=== PATIENT | female | born 1965 | race Caucasian/White ===

== ENCOUNTER 2020-04-12 16:44 | Outpatient (CLI) | payer OTHER, SELFPAY ==
--- NOTE | ~2020-04-12 | MM_ITS ---
EXAMINATION: MM screening [facility] w naheed HISTORY: Screening TECHNIQUE: Craniocaudal and mediolateral oblique 3-D tomosynthesis images were obtained and synthetic 2-D images were generated. CAD analysis was submitted and interpreted. COMPARISON: Comparison to multiple prior studies sequentially, with oldest reviewed study dated 07/2016. BREAST PARENCHYMAL COMPOSITION: There are scattered areas of fibroglandular density. FINDINGS: There is no evidence of suspicious mass, calcification, or architectural distortion to sugg est malignancy in either breast. There has been no suspicious interval change. IMPRESSION: 1. No mammographic evidence of malignancy. 2. Recommend routine screening mammography in one year. BI-RADS Category 1: Negative. Reviewed, dictated and finalized at location A. INSTRUCTOR
== END 2020-04-12 16:45 | disposition home or self-care (01) ==
DX: Z12.31 Encounter for screening mammogram for malignant neoplasm of breast (principal)
CPT/HCPCS: 77063; 77067

== ENCOUNTER 2021-06-29 17:02 | Outpatient (CLI) | payer OTHER, SELFPAY ==
--- NOTE | ~2021-06-29 | MM_ITS ---
EXAMINATION: MM screening [facility] BI w naheed HISTORY: Screening mammogram TECHNIQUE: Craniocaudal and mediolateral oblique 3-D tomosynthesis images were obtained and synthetic 2-D images were generated. CAD analysis was submitted and interpreted. COMPARISON: 04/12/2020, 03/17/2019 BREAST PARENCHYMAL COMPOSITION: There are scattered areas of fibroglandular density. FINDINGS: There is no suspicious mass, calcification, or architectural distortion to suggest malignan cy in either breast. There has been no suspicious interval change. IMPRESSION: 1. No mammographic evidence of malignancy. 2. Recommend routine screening mammography in one year. BI-RADS Category 1: Negative Reviewed, dictated and finalized at location A.
== END 2021-06-29 17:03 | disposition home or self-care (01) ==
LOC: ANHIMG 17:06
DX: Z12.31 Encounter for screening mammogram for malignant neoplasm of breast (principal)
CPT/HCPCS: 77063; 77067

== ENCOUNTER 2022-08-29 16:38 | Outpatient (CLI) | payer OTHER, SELFPAY ==
--- NOTE | ~2022-08-29 | MM_ITS ---
EXAMINATION: MM screening [facility] BI w naheed HISTORY: Screening mammogram TECHNIQUE: Craniocaudal and mediolateral oblique 3-D tomosynthesis images were obtained and synthetic 2-D images were generated. CAD analysis was submitted and interpreted. COMPARISON: 06/29/2021, 04/12/2020, 03/17/2019 BREAST PARENCHYMAL COMPOSITION: There are scattered areas of fibroglandular density. FINDINGS: No suspicious mass, calcification, or architectural distortion are identified in either senthil ast to suggest malignancy. There has been no suspicious interval change. IMPRESSION: 1. No mammographic evidence of malignancy. 2. Recommend routine screening mammography in one year. BI-RADS Category 1: Negative Reviewed, dictated and finalized at location A.
== END 2022-08-29 16:39 | disposition home or self-care (01) ==
DX: Z12.31 Encounter for screening mammogram for malignant neoplasm of breast (principal)
CPT/HCPCS: 77063; 77067

== ENCOUNTER 2023-11-14 16:33 | Outpatient (CLI) | payer OTHER, SELFPAY ==
--- NOTE | ~2023-11-14 | MM_ITS ---
EXAMINATION: MM screening [facility] BI w naheed HISTORY: Screening mammogram TECHNIQUE: Craniocaudal and mediolateral oblique 3-D tomosynthesis images were obtained and synthetic 2-D images were generated. CAD analysis was submitted and interpreted. COMPARISON: 08/29/2022, 06/29/2021, 04/12/2020 BREAST PARENCHYMAL COMPOSITION:Not Dense. There are scattered areas of fibroglandular density. FINDINGS: No suspicious mass, calcification, or architectural distortion are identified in either senthil ast to suggest malignancy. There has been no suspicious interval change. IMPRESSION: No mammographic evidence of malignancy. Recommend routine screening mammography in one year. BI-RADS Category 1: Negative Reviewed, dictated and finalized at location .
== END 2023-11-14 16:34 | disposition home or self-care (01) ==
LOC: ANHIMG 16:36
DX: Z12.31 Encounter for screening mammogram for malignant neoplasm of breast (principal)
CPT/HCPCS: 77063; 77067

== ENCOUNTER 2024-12-15 16:27 | Outpatient (CLI) | payer OTHER, SELFPAY ==
--- NOTE | ~2024-12-15 | MM_ITS ---
EXAMINATION: MM screening [facility] BI w naheed HISTORY: Screening TECHNIQUE: Craniocaudal and mediolateral oblique 3-D tomosynthesis images were obtained and synthetic 2-D images were generated. CAD analysis was submitted and interpreted. COMPARISON: Mammograms from 11/14/2023 and 08/29/2022 BREAST PARENCHYMAL COMPOSITION: There are scattered areas of fibroglandular density. FINDINGS: There is no evidence of suspicious mass, calcification, or architectural distortion in either breast to suggest malignancy. There has been no significant interval change. IMPRESSION: 1. No mammographic evidence of malignancy. Recommend routine screening mammography in one year. BI-RADS Category 1: Negative Reviewed, dictated and finalized at location Q. IMPRESSION: 1. No mammographic evidence of malignancy. Recommend routine screening mammogra phy in one year. BI-RADS Category 1: Negative
--- OUTSIDE RECORDS SUMMARY | 2024-12-15 16:30 | XMS_ITS | Encounter Summary ---
Author Organization [facility] Address [address] [place] [address] Care Team Providers Care County Historian Name Role Phone Gen Hobbs MD Primary Care Provider [phone] Encounter Details Date Type Department Care Team (Late st Contact Info) Description 08/01/2007 Orders Only [facility] Internal Medicine Medical [place] [facility] [address] [address] Des Finley MD [address] [facility] 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 ORDERING PHYSICIAN: KALEN FINLEY MD OFFICE SUBASSEMBLY ASSEMBLER & PHONE: Kiara Dickey ORDER PRINTED BY: AUG 04, 2007 Abelino Hurtado L 11:31 a FOR SCHEDULING USE ONLY: FIRST ATTEMPT Date:AUG 04, 2007 Abelino Hurtado L 12:29 p Left message on Recorder.@home and work AUG 04, 2007 Hue Carter M 03:45 p TEST SCHEDULE [facility]. APPOINTMENT DATE : 08/19/2007 The appointment was scheduled by Hue Carter M at [phone] AUG 04, 2007 Hue Carter M 03:45 p Pre-authorization number: [facility]- ([facility]) NN PER VIKA C @ [employer] Spoke with patient. * Kalen Finley MD - 09/19/2007 10:45 AM CDT BLOOD PRESSURE: 124/82 Left Arm Sitting TEMPERATURE: 98??f Oral PULSE: 64 Right Radial, Regular RESPIRATIONS: 16 WEIGHT: 185lbs NURSE NAME: LeachAle I ALLERGIES: No known drug allergies. TOBACCO USE Patient does not currently use tobacco. MEDICATIONS: Medication list current. CHIEF COMPLAINT Seen for a preventive examination. Patient here for follow up hypertension. Patientcomplains of neck pain. Complains of left arm pain. HISTORY: 42-year-old white female comes to the office for yearly preventive examination. She has a pre-existing history of hypertension but that has been fairly well controlled with a combination of amlodipine and enalapril. She denies any peripheral edema nor has she had any problems with cough.. CURRENT PROBLEM LIST: 311 DEPRESSION 401.1 HYPERTENSION ESSENTIAL BENIGN 692.6 CONTACT DERMATITIS AND OTHER ECZEMA CURRENT MEDICATION LIST: AMLODIPINE BESYLATE ORAL TABLET 5 MG, 1 Every Morning ENALAPRIL MALEATE ORAL TABLET 20 MG, 1 Every Morning CURRENT ALLERGY LIST: NKDA ROS: GENERAL: Normal activity and energy level, no change in appetite. No major weight gain or loss. No malaise, chills, fever, diaphoresis.. ENT: No hearing loss, epistaxis, hoarseness or dysphagia. No sinus congestion.. ENDOCRINE: No heat or cold intolerance, no excessive thirst.. CARDIAC: No chest pain, palpitations, orthopnea, dyspnea on exertion, or paroxysmal nocturnal dyspnea.. RESPIRATORY: No dyspnea, cough, hemoptysis or wheezing.. : No frequency, urgency, hematuria or dysuria.. GI: No abdominal pain, nausea, vomiting, diarrhea, constipation, melena, or hematochezia.. NEUROLOGIC: No weakness, dizziness, loss of consciousness, transient ischemic symptoms, or seizures. MUSCULOSKELETAL: . long-standing history of intermittent episodes of chest pain with radiation intothe left shoulder. More recently, she had had radiation of the pain into the left upper extremity. She denies any left upper extremity weakness or paresthesias. Ibuprofen and Aleve have been of no help. When she had only the neck pain, the patient was seen by a chiropractor who performed massage, electrolysis and manipulation. Her symptoms got better, however she began to develop sporadic left arm symptoms they were occurring randomly. PSYCHIATRIC: . Haven continues to struggle with the loss of both of her parents 3 years ago, within4 months of one another. She has noted anhedonia for greater than two consecutive years. She has become more reclusive. Appetite has not been affected and the patient has been functional, not missingany work. She denies low self-esteem, hopelessness or helplessness. She does not derive any enjoyment out of life. She has never had any thoughts of self-harm. FAMILY HISTORY: denies interval family history SOCIAL HISTORY: TOBACCO USE: Has no significant smoking history. ALCOHOL: Drinks a minimal amount of alcohol. EXERCISES: The patient exercises three times per week. The exercise is predominantly walking. ILLICIT DRUG USE: Denies illicit drug use. PHYSICAL EXAMINATION: CONSTITUTIONAL: GENERAL APPEARANCE: Healthy appearing patient in no distress. EYES: PERRLA NECK/THYROID: Trachea midline. No thyroid enlargement, tenderness, or mass. No supraclavicular or cervical adenopathy., and no cervical bruits RESPIRATORY: Clear to auscultation and percussion. Normal respiratory effort. CARDIOVASCULAR: CARDIAC: Regular rhythm. No murmurs, rubs, or gallops. ARTERIAL: No aortic bruits. EDEMA/VARICOSITIES OF EXTREMITIES: No edema or varicosities. GASTROINTESTINAL: ABDOMEN: Soft, non-tender, without masses. Bowel sounds active. LIVER/SPLEEN/KIDNEY: No hepatosplenomegaly, tenderness or nodularity. Kidneys not palpable. MUSCULOSKELETAL EXAM: HEAD AND NECK: No swelling, no tenderness, MOVEMENT MILDLY RESTRICTED IN ALL DIRECTIONS.. There is tenderness to palpation of the right trapezius muscle. EXTREMITIES: LEFT UPPER: Normal deltoid strength, normal biceps strength, normal triceps strength. 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 DEEP TENDON REFLEXES: 2+/4+ patellar reflexes bilaterally, 2+/4+ Achilles' reflexes bilaterally, 2+/4+ biceps reflexes bilaterally, ABSENT LEFT TRICEPS REFLEX, 2+/4+ right triceps reflex, 2+/4+ brachioradialis reflexes bilaterally. PSYCHIATRIC: Alert and oriented x 3. Affect is blunted and mood is depressed. The patient cries frequently during her visit. There is no psychomotor retardation. No suicidal ideation is detected. ASSESSMENT/PLAN: 401.1-HYPERTENSION ESSENTIAL BENIGN ASSESSMENT: The blood pressure remains satisfactory. RECOMMENDATIONS: Continue present regimen. Check renal function V70.0-ROUTINE GENERAL MEDICAL EXAMINATION ASSESSMENT: physical examination is remarkable only for those things mentioned in the review of systems. RECOMMENDATIONS: As below LAB ORDERS: Order number: [id number] Test Ordered: COMPREHENSIVE METABOLIC PANEL & GFR 1112 Order number: [id number] Test Ordered: LIPID PANEL 1078 Order number: [id number] Test Ordered: TSH (REFLEX FREE T4/FREE T3) 1727 723.1-NECK PAIN ASSESSMENT: cervicalgia, likely secondary to degenerative arthritis. Although the patient's neck issomewhat better, she has loss of left triceps reflex. RECOMMENDATIONS: cervical spine MRI LAB ORDERS: Order number: [id number] Test Ordered: MRI CSPINE 311-DEPRESSION ASSESSMENT: patient meet clinical criteria for dysthymia RECOMMENDATIONS: as below MEDICATIONS: LEXAPRO ORAL TABLET 10 MG, 1 Every Morning, 35 Dispensed, 35 samples given, status: NEW PRESCRIPTION, 08/01/2007. HEALTH MAINTENANCE: LAST PAP DATE: discuss. LAST MAMMOGRAM DATE: discuss. DISCUSSED SMOKING: non smoker. TIME PHYSICIAN WITH PATIENT: TOTAL: 20 minutes. RETURN VISIT : Patient instructed to return in 5 weeks. Electronically Signed by: Kalen Finley MD on Friday, August 03, 2007 documented in this encounter Plan of Treatment Not on file documented as of this encounter Visit Diagnoses Not on filedocumented in this encounter Care Teams County Historian Relationship Specialty Start Date End Date Gen Hobbs MD [facility] [address] PCP - General Internal Medicine 02/25/23 documented as of this encounter
--- OUTSIDE RECORDS SUMMARY | 2024-12-15 16:30 | XMS_ITS | Encounter Summary ---
Author Organization [facility] Address [address] [place] [address] Care Team Providers Care Digital Community Manager Name Role Phone Gen Hobbs MD Primary Care Provider [phone] Encounter Details Date Type Department Care Team (Late st Contact Info) Description 08/22/2005 Outpatient Historical [facility] Internal Medicine Medical [facility] 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
--- OUTSIDE RECORDS SUMMARY | 2024-12-15 16:30 | XMS_ITS | Clinical Summary ---
Author Organization [facility] Address [address] [place] [address] Care Team Providers Care Pack Room Operator Name Role Phone Jailyn Nguyen MD Unavailable + Gen Hobbs MD Primary Care Provider [phone] [facility],non-owned Affiliates and Associated Physician Practices is amultiple site organization consisting of ambulatory clinics and hospital sitesin [place], [place], [place] and [place]. This disclosure is being madepursuant to the Care Everywhere program and may not contain all information available regarding this patient. Last updated 18.[facility] Allergies No known active allergies Medications * Be aware that medications may not be up to date on this document. Alwaysverify current medications with the patient. cyanocobalamin (Vitamin B-12) 1000 MCG tablet Take 1 (one) tablet by mouth once daily Active vitamin D3 (Cholecaciferol) 125 MCG (5000 UT) tabletIndications: Menopause Take 1 (one) tablet by mouth once daily 06/18/19 24 Active Magnesium GlycinateIndicatio ns:Menopause Use 120 mg once daily Capsule supplement 120mg per dose 1000 g 06/18/19 24 Active estradiol (ESTRACE VAGINAL) 0.1 MG/GM vaginal cream Insert 1 g into the vagina Two times a week 42.5 g 5 12/19/19 24 Active Additional Information Patient not taking.Reported on 12/31/2023 amLODIPine (Norvasc) 10 MG tabletIndications: Essential hypertension Take 1 (one) tablet by mouth once daily 90 tablet 1 04/20/19 25 Active amLODIPine (Norvasc) 10 MG tablet Take 1 (one) tablet by mouth once daily for 10 days 10 tablet 04/20/19 25 Active atorvastatin (Lipitor) 20 MG tabletIndications: Mixed hyperlipidemia TAKE 1 TABLET BY MOUTH ONCE DAILY 90 tablet 1 09/11/19 25 Active Active Problems Problem Noted Date Diagnosed Date Essential hypertension 10/05/2016 Assessment & Plan (12/31/2023 9:10 PM CDT): Blood pressure at goal on amlodipine Tolerating without side effects Mixed hyperlipidemia 10/05/2016 Assessment & Plan (12/31/2023 9:10 PM CDT): Patient's goal would be to reduce atorvastatin Current cardiovascular risk is low Tolerating without side effects Follow-up LDL, if < 130 patient will be at goal, can reduce dose if over suppressed Gastroesophageal reflux disease without esophagi tis 10/05/2016 Assessment & Plan (12/31/2023 9:10 PM CDT): No symptoms reported Screening for condition 05/03/2016 Overview (12/23/2023): 12/19/2023: PAP NILM, HPV neg --> Wants yearly 11/15/2023: MMG BIRADS-1 2016: Colonoscopy --> 2026 Depressive disorder 08/01/2007 Resolved Problems Problem Noted Date Diagnosed Date Resolved Date Perimenopause 10/27/2019 12/03/2022 Immunizations Immunization Administration Dates Next Due TDAP (7yrs+) 10/05/2016,02/25/2015 Family History Medical History Relation Name Comments Childhood heart surgery Brother 1 GA @ 38 Diabetes - Type 2 Brother 1 Cancer Father lung Hypertension Father Cancer - Breast Maternal Aunt Diabetes - Type 2 Mother Hyperlipidemia Mother Hypertension Mother Other Mother heart failure Crohn's Disease Sister 1 Diabetes - Type 2 Sister 2 Other Sister 2 angina Relation Name Status Comments Brother 1 Brother 2 Alive Brother 3 Alive Father Maternal Aunt Mother Sister 1 Alive Sister 2 Alive Social History Tobacco Use Types Packs/Day Years Used Date Smoking Tobacco: Never Smokeless Tobacco: Never Tobacco Cessation:Counseling Given: Not Answered Alcohol Use Standard Drinks/Week Comments Yes 0 (1 standard drink = 0.6 oz pur e alcohol) socially PHQ-2 Answer Date Recorded Patient Health Questionnaire-2 Score 0 12/31/2023 Comments No Sex and Gender Information Value Date Recorded Sex Assigned at Not on file Legal Sex 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 Gender Identity Not on file Sexual Orientation Not on file Last Filed Vital Signs Vital Sign Reading Time Taken Comments Blood Pressure 114/80 12/31/2023 3:18 PM CDT Pulse 73 12/31/2023 3:18 PM CDT Temperature 36.2 C (97.2 F) 12/31/2023 3:18 PM CDT Respiratory Rate 25 01/11/2017 9:40 AM CDT Oxygen Saturation 94% 12/31/2023 3:18 PM CDT Inhaled Oxygen Concentration - - Weight 77.7 kg (171 lb 6.4 oz) 12/31/2023 3:18 P M CDT Height 165.1 cm (5' 5) 12/19/2023 11:34 AM CDT Body Mass Index 28.52 12/19/2023 11:34 AM CDT Plan of Treatment Upcoming Encounters Date Type Department Care Team (Late st Contact Info) Description 12/31/2024 2:40 PM CDT Office Visit [facility] - Internal Medicine [address] [place] [phone] Gen Hobbs MD [address] [place] [phone] 02/02/2025 1:15 PM CDT Office Visit [facility] - LEASING MANAGER [address] [place] [address], [address] [place] [phone] Jailyn Nguyen MD [address] [place] [address]. [address] [address] 05/25/2025 1:20 PM CLEAN UP SUPERVISOR Office Visit [facility] - Internal Medicine [address] [place] [phone] Gen Hobbs MD [address] [facility] [place] [address] Health Maintenance Due Date Last Done Comments COLOGUARD (AGES 45-75) - COLON CA SCREENING 1965 CT COLONOGRAPHY - COLON CA SCREENING 1965 FIT - COLON CA SCREENING 1965 FLEX SIG - COLON CA SCREENING 1965 HEPATITIS B VACCINE (1 of 3 - 19+ 3-dose series) 1985 PNEUMOCOCCAL VACCINE 50+ (1 of 1 - PCV) 2016 ZOSTER VACCINE (1 of 2) 2016 COVID-19 VACCINE (2 - season) 2023 06/23/2020 DEPRESSION SCREENING 04/15/2024 06/18/2023, 12/04/19 23 INFLUENZA VACCINE (#1) 2024 MAMMOGRAM 11/13/2025 11/14/2023, 08/13, 04/12/2020, Additional history exists DTAP/TDAP/TD VACCINES (3 - Td or Tdap) 10/05/2026 10/05/2016, 02/25/2015 SCREENING FOR DIABETES 12/31/2026 , 01/01/2024, 02/25/2023, Additional history exists COLON MONITORING 01/11/2027 01/11/2017, 01/11/2017 COLONOSCOPY - COLON CA SCREENING 01/11/2027 01/11/2017, 01/11/2017 Colorectal Cancer Screening 01/11/2027 PAP with HPV 12/18/2028 12/19/2023, 11/14, 11/06/2021, Additional history exists HEPATITIS C SCREENING Completed 10/31/2019 HIV SCREENING Completed 10/31/2019 HIB VACCINE Aged Out No longer eligi ble based on patient's age to complete this topic HPV VACCINE Aged Out No longer eligi ble based on patient's age to complete this topic MENINGOCOCCAL (Group B) VACCINE SHARED DECISION-MAKING Aged Out No longer eligible based on patient's age to complete this topic MENINGOCOCCAL GROUPS A/C/Y/W VACCINE Aged Out No longer eligible based on patient's age to complete this topic Procedures Procedure Name Priority Date/Time Associated Diagnosis Comments COMPREHENSIVE METABOLIC PANEL Routine 01/01/2024 11:51 AM CDT Physical exam PAP IG LB +HPV APTIMA REFLEX , FOR HR POS Routine 12/19/2023 11:51 AM CDT Well woman exam with routine gynecological exam MAMMOGRAM 11/14/2023 HEPATITIS C ANTIBODY Routine 10/31/2019 9:45 AM CDT Need for hepatitis C screening test HIV-1 HIV-2 ANTIBODY + HIV P24 AG PANEL Routine 10/31/2019 9:45 AM CDT Screening for HIV (human immunodeficiency virus) ENDOSCOPY, COLON, SCREENING Routine 01/11/2017 8:39 AM CDT from Last 3 Months or Most Recently Relevant to Health Maintenance Results * COMPREHENSIVE METABOLIC PANEL (01/01/2024 11:51 AM CDT) Glucose 93 70 - 99 mg/dL [facility] ACCOUNT BILL BUN 12 6 - 24 mg/dL [facility] ACCOUNT BILL Creatinine 0.95 0.57 - 1.00 mg/dL [facility] ACCOUNT BILL eGFR by CKD-EPI 70 >59 mL/min/1.7 3 [facility] ACCOUNT BILL BUN/Creatinine Ratio 13 9 - 23 [facility] ACCOUNT BILL Sodium 141 134 - 144 mmol/L [facility] ACCOUNT BILL Potassium 4.7 3.5 - 5.2 mmol/L [facility] ACCOUNT BILL Chloride 102 96 - 106 mmol/L [facility] ACCOUNT BILL CO2 21 20 - 29 mmol/L [facility] ACCOUNT BILL Calcium 9.6 8.7 - 10.2 mg/dL [facility] ACCOUNT BILL Protein Total 7.7 6.0 - 8.5 g/dL [facility] ACCOUNT BILL Albumin 4.6 3.8 - 4.9 g/dL [facility] ACCOUNT BILL Globulin Total 3.1 1.5 - 4.5 g/dL [facility] ACCOUNT BILL Bilirubin Total 0.4 0.0 - 1.2 mg/dL [facility] ACCOUNT BILL Alkaline Phosphatase 106 44 - 121 IU/L [facility] ACCOUNT BILL AST 26 0 - 40 IU/L [facility] ACCOUNT BILL ALT 17 0 - 32 IU/L [facility] ACCOUNT BILL Blood BLOOD SPECIMEN / Unknown 01/01/2024 11:51 AM CDT 01/01/2024 Narrative [facility] ACCOUNT BILL - 01/02/2024 7:12 AM CDT Performed at: - [address] [id number] Cable Television Installer: Hayden Clark PhD, Phone: [phone] us Gen Hobbs MD LAB - CHEMISTRY ORDERABLES Fi nal Result [facility] ACCOUNT BILL [address] [place] [address] * PAP IG LB +HPV APTIMA REFLEX 16,18/45 FOR HR POS (12/19/2023 11:51 AM CDT) Diagnosis [facility] ACCOUNT BILL Comment: NEGATIVE FOR INTRAEPITHELIAL LESION OR MALIGNANCY. CELLULAR CHANGES ASSOCIATED WITH ATROPHY ARE PRESENT. Specimen Adequacy [facility] ACCOUNT BILL Comment: Satisfactory for evaluation. Endocervical and/or squamous metaplastic cells (endocervical component) are present. Clinician Provided ICD10 [facility] ACCOUNT BILL Comment:Z01.419 Performed by [facility] ACCOUNT BILL Comment:Sushila Lamb, Cytot echnologist (ASCP) Comment . [facility] ACCOUNT BILL Note [facility] ACCOUNT BILL Comment: The Pap smear is a screening test designed to aid in the detection of premalignant and malignant conditions of the uterine cervix. It is not a diagnostic procedure and should not be used as the sole means of detecting cervical cancer. Both false-positive and false-negative reports do occur. . IGLBP CPT Code Automation [facility] ACCOUNT BILL Comment: This liquid based ThinPrep(R) pap test was screened with the use of an image guided system. Human papillomavirus Aptima Negative Negative [facility] ACCOUNT BILL Comment: This nucleic acid amplification test detects fourteen high-risk HPV types (16,18,31,33,35,39,45,51,52,56,58,59,66,68) without differentiation. ENTIRE ENDOCERVIX / Unknown 12/19/2023 11:51 AM CDT 12/19/2023 Narrative [facility] ACCOUNT BILL - 12/23/2023 2:07 PM CDT No. of containers..01 ThinPrep Vial Resulting Agency Comment Lab Testing performed at: [facility] Jordin Chacon [phone] us Jailyn Nguyen MD LAB - PATHOLOGY/CY TOLOGY ORDERABLES Final Result [facility] ACCOUNT BILL [address] [place] [address] * MAMMOGRAM (11/14/2023) Anatomical Region Laterality Modality Other 11/14/2023 Narrative 11/14/2023 Ordered by an unspecified provider. us Scanned Document SCANNING ONLY Final Result * HIV-1 HIV-2 ANTIBODY + HIV P24 AG PANEL (10/31/2019 9:45 AM CDT) Pathologist [facility] HIV Screen 4th Generation w Reflex Non Reactive Non Reactive [facility] ACCOUNT BILL Comment:FASTING Blood BLOOD SPECIMEN / Unknown 10/31/2019 9:45 AM CDT 10/31/2019 Narrative Resulting Agency Comment [facility] performed [facility]: [facility] [address] [facility] [phone] us Ruddy Sandhu MD LAB - CHEMISTRY ORDERABLES Final Result Performing Organization Address City/[facility]/ZIP Co de Phone Number [facility] ACCOUNT BILL [address] [place] [address] * HEPATITIS C ANTIBODY (10/31/2019 9:45 AM CDT) Pathologist [facility] Hepatitis C Antibody <0.1 0.0 - 0.9 s/co ratio [facility] ACCOUNT BILL Comment: Negative: < 0.8 Indeterminate: 0.8 - 0.9 Positive: > 0.9 . The CDC recommends that a positive HCV antibody result be followed up with a HCV Nucleic Acid Amplification test (670371). FASTING Blood BLOOD SPECIMEN / Unknown 10/31/2019 9:45 AM CDT 10/31/2019 Narrative Resulting Agency Comment Lab Testing performed at: [facility] [address] [facility] [phone] us Ruddy Sandhu MD LAB - CHEMISTRY ORDERABLES Final Result [facility] ACCOUNT BILL [address] [facility] [place] [address] * ENDOSCOPY, COLON, SCREENING (01/11/2017 8:39 AM CDT) Report Endoscopy POC _ Patient Name: Haven Fowler Procedure Date: 01/11/2017 8:39 AM Date of : 1965 Admit Type: Outpatient Age: 51 Gender: Female Attending MD: Nas Wooten MD _ Procedure: Colonoscopy Indications: Screening for colorectal malignant neoplasm Providers: Nas Wooten MD (Doctor), Emmanuel Kong, Teacher [employer] Referring MD: Ruddy Sandhu MD (Referring MD) Medicines: Monitored Anesthesia Care Complications: No immediate complications. _ Procedure: Pre-Anesthesia Assessment: - ASA Grade Assessment: II - A patient with mild systemic disease. - Airway Examination: Mallampati Class I (tonsillar pillars visualized). After I obtained informed consent, the scope was passed under direct vision. Throughout the procedure, the patient's blood pressure, pulse, and oxygen saturations were monitored continuously. The Colonoscope was introduced through the anus and advanced to the cecum, identified by appendiceal orifice and ileocecal valve. The colonoscopy was performed without difficulty. The patient tolerated the procedure well. The quality of the bowel preparation was adequate. Impression: - Diverticulosis. - No specimens collected. Findings: A few small-mouthed diverticula were found in the colon. _ Recommendation: - Repeat colonoscopy in 10 years for screening purposes. - Repeat colonoscopy sooner in the event of new symptoms ie: bleeding, weight loss or change in bowel habits etc, or if a family member (mother, father, sister, brother) is diagnosed with polyps or colon cancer. Procedure Code(s): --- Professional --- 86954, Colonoscopy, flexible; diagnostic, including collection of specimen(s) by brushing or washing, when performed (separate procedure) --- Technical --- 79948, Colonoscopy, flexible; diagnostic, including collection of specimen(s) by brushing or washing, when performed (separate procedure) Diagnosis Code(s): --- Professional --- Z12.11, Encounter for screening for malignant neoplasm of colon K57.30, Diverticulosis of large intestine without perforation or abscess without bleeding --- Technical --- Z12.11, Encounter for screening for malignant neoplasm of colon K57.30, Diverticulosis of large intestine without perforation or abscess without bleeding CPT copyright 2015 [employer]. All rights reserved. The codes documented in this report are preliminary and upon morals squad police officer review may be revised to meet current compliance requirements. Nas Wooten MD 01/11/2017 9:03:06 AM This report has been signed electronically. Number of Addenda: 0 Note Initiated On: 01/11/2017 8:39 AM [facility] ENDOSCOPY 01/11/2017 8:39 AM CDT us Nas Wooten MD GI PROCEDURE ORDERABLES Edited R esult - Final [facility] ENDOSCOPY from Last 3 Months or Most Recently Relevant to Health Maintenance Insurance [facility] [place] [address] [facility] Care Teams Pack Room Operator Relationship Specialty Start Date End Date Gen Hobbs MD [address] [facility] [address] [place] [phone] PCP - General Internal Medicine 12/13/22 Jailyn Nguyen MD [address] [facility] [address] [place] [address] Obstetrics and Gynecology 10/05/16
--- OUTSIDE RECORDS SUMMARY | 2024-12-15 16:30 | XMS_ITS | Encounter Summary ---
Author Organization [facility] Address [address] [place] [address] Care Team Providers Care Museum Guide Name Role Phone Gen Hobbs MD Primary Care Provider [phone] Encounter Details Date Type Department Care Team (Late st Contact Info) Description 12/13/2005 Outpatient Historical [facility] Internal Medicine Medical [place] [facility] [address] [facility] [address] [address] [address] Des Finley MD [address] [facility] [address] [place] [address] Social History Tobacco Use Types Packs/Day Years Used Date Smoking Tobacco: Never Assessed Comments Unknown Sex and Gender Information Value Date Recorded Sex Assigned at Not on file 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 Gender Identity Not on file Sexual Orientation Not on file documented as of this encounter Last Filed Vital Signs Vital Sign Reading Time Taken Comments Blood Pressure 164/108 12/13/2005 2:00 PM CDT Pulse 84 12/13/2005 2:00 PM CDT Temperature 36.7 C (98.1 F) 12/13/2005 2:00 PM CDT Respiratory Rate 16 12/13/2005 2:00 PM CDT Oxygen Saturation - - Inhaled Oxygen Concentration - - Weight 85.7 kg (189 lb) 12/13/2005 2:00 PM CDT Height 164.5 cm (5' 4.75) 12/13/2005 2:00 PM CD T Body Mass Index 31.69 12/13/2005 2:00 PM CDT documented in this encounter Plan of Treatment Not on file documented as of this encounter Visit Diagnoses Not on filedocumented in this encounter Care Teams Museum Guide Relationship Specialty Start Date End Date Gen Hobbs MD [address] [place] [phone] PCP - General Internal Medicine 02/25/23 documented as of this encounter
--- OUTSIDE RECORDS SUMMARY | 2024-12-15 16:30 | XMS_ITS | Encounter Summary ---
Author Organization [facility] Address [address] [place] [address] Care Team Providers Care Company Doctor Name Role Phone Gen Hobbs MD Primary Care Provider [phone] Encounter Details Date Type Department Care Team (Late st Contact Info) Description 12/25/2005 Outpatient Historical [facility] ([facility]) [address] 

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
--- OUTSIDE RECORDS SUMMARY | 2024-12-15 16:30 | XMS_ITS | Encounter Summary ---
Author Organization [facility] Address [address] [place] [address] Care Team Providers Care Brakes Inspector Name Role Phone Gen Hobbs MD Primary Care Provider [phone] Encounter Details Date Type Department Care Team (Late st Contact Info) Description 08/22/2005 Outpatient Historical [facility] Internal Medicine Medical [facility] [address] [facility] [address] [address] Ruchi Neves MD [facility] 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
--- OUTSIDE RECORDS SUMMARY | 2024-12-15 16:30 | XMS_ITS | Encounter Summary ---
Author Organization [facility] Address [address] [place] [address] Care Team Providers Care Certified Rehabilitation Counselor Name Role Phone Gen Hobbs MD Primary Care Provider [phone] Encounter Details Date Type Department Care Team (Late st Contact Info) Description 2007 Orders Only [facility] Internal Medicine Medical [place] [facility] [address] [facility] [address] [address] Des Finley MD [address] [facility] [address] [place] [address] Social History Tobacco Use Types Packs/Day Years Used Date Smoking Tobacco: Never Assessed Comments Unknown Sex and Gender Information Value Date Recorded Sex Assigned at Not on file Legal Sex Female 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 Gender Identity Not on file Sexual Orientation Not on file documented as of this encounter Progress Notes * [place] Finley MD - 09/18/2007 5:37 PM CDT TIME:11:40 am PATIENT`S HOME PHONE: PATIENT`S WORK PHONE: PATIENT`S INSURANCE: [facility] WHO TOOK THE CALL: Caridad Travis B GENERAL INFORMATION ALTERNATIVE PHONE NUMBER: [phone] PHARMACY NUMBER: [phone] Pt has PE scheduled for July but will run out of medication SECTION 1: REQUESTED ACTION andebb 06/20/07 at 11:41 am: MEDICATION REQUEST: MEDICATIONS: ENALAPRIL MALEATE ORAL TABLET 5 MG, 1 Every Morning, 30 Dispensed, 6 Fills, status: CONTINUED, 10/22/2006. She says she takes 20 mg. NORVASC ORAL TABLET 5 MG, 1 Every Morning, 30 Dispensed, 6 Fills, status: CONTINUED, 10/03/2006. DOCTOR`S RESPONSE: latisha 06/20/07 at 11:51 am MEDICATIONS: Call in to Pharmacy ENALAPRIL MALEATE ORAL TABLET 5 MG, 1 Every Morning, 30 Dispensed, 6 Fills, status: DISCONTINUED, 2007. ENALAPRIL MALEATE ORAL TABLET 20 MG, 1 Every Morning, 30 Dispensed, 6 Fills, status: NEW PRESCRIPTION, 2007. DOCTOR`S OTHER RESPONSE: OK to refill Norvasc as is FINAL ACTION: andebb 06/20/07 at 04:12 pm Spoke with patient 06/20/07 at 04:12 pm. Called pharmacy at 06/20/07 at 04:12 pm. documented in this encounter Plan of Treatment Not on file documented as of this encounter Visit Diagnoses Not on filedocumented in this encounter Care Teams Certified Rehabilitation Counselor Relationship Specialty Start Date End Date Gen Hobbs MD [facility] [address] PCP - General Internal Medicine 02/25/23 documented as of this encounter
--- OUTSIDE RECORDS SUMMARY | 2024-12-15 16:30 | XMS_ITS | Encounter Summary ---
Author Organization [facility] Address [address] [place] [address] Care Team Providers Care Continuous Weld Pipe Mill Supervisor Name Role Phone Gen Hobbs MD Primary Care Provider [phone] Encounter Details Date Type Department Care Team (Late st Contact Info) Description 02/23/2006 Orders Only [facility] Internal Medicine Medical [place] [facility] [address] [address] Des Finley MD [address] [facility] [address] [place] [address] Social History Tobacco Use Types Packs/Day Years Used Date Smoking Tobacco: Never Assessed Comments Unknown Sex and Gender Information Value Date Recorded Sex Assigned at Not on file Legal 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 I would like to increase her dosage and have her take 5 mg daily. She should continue to monitor her blood pressure and send us the readings after two weeks. Please advise her not to wait so longbefore sending the readings to us so that we can be more aggressive in titrating the medication. SECTION 1: DOCTOR`S RESPONSE: latisha 02/23/06 at 12:10 pm MEDICATIONS: Call in to Pharmacy ENALAPRIL MALEATE ORAL TABLET 5 MG, 1 Every Morning, 30 Dispensed, 3 Fills, status: NEW PRESCRIPTION, 02/23/2006. FINAL ACTION: [email or web address] 02/25/06 at 05:16 pm Left message on patient`s recorder or with a family member 02/25/2006 at 05:16 pm. /ap SECTION 2: FINAL ACTION: powea1 02/26/06 at 10:26 am Left message on patient`s recorder or with a family member 02/26/2006 at 10:26 am. /ap SECTION 3: FINAL ACTION: powea1 02/26/06 at 11:51 am Spoke with patient 02/26/06 at 11:51 am. /ap Called pharmacy at 02/26/06 at 11:55 am. /ap Electronically Signed by: Kiki Rico on Sunday, February 26, 2006 documented in this encounter Plan of Treatment Not on file documented as of this encounter Visit Diagnoses Not on filedocumented in this encounter Care Teams Continuous Weld Pipe Mill Supervisor Relationship Specialty Start Date End Date Gen Hobbs MD [address] [address] PCP - General Internal Medicine 02/25/23 documented as of this encounter
--- OUTSIDE RECORDS SUMMARY | 2024-12-15 16:30 | XMS_ITS | Encounter Summary ---
Author Organization [facility] Address [address] [place] [address] Care Team Providers Care Seismograph Helper Name Role Phone Gen Hobbs MD Primary Care Provider [phone] Encounter Details Date Type Department Care Team (Late st Contact Info) Description 10/03/2006 Orders Only [facility] Internal Medicine Medical [facility] [address] [facility] [address] [address] Des Finley MD [address] [facility] [address] [place], [place] [id number] Social History Tobacco Use Types Packs/Day Years Used Date Smoking Tobacco: Never Assessed Comments Unknown Sex and Gender Information Value Date Recorded Sex Assigned at Not on file 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
--- OUTSIDE RECORDS SUMMARY | 2024-12-15 16:30 | XMS_ITS | Encounter Summary ---
Author Organization [facility] Address [address] [place] [address] Care Team Providers Care Stereotyper Helper Name Role Phone Gen Hobbs MD Primary Care Provider [phone] Encounter Details Date Type Department Care Team (Late st Contact Info) Description 08/01/2007 Outpatient Historical [facility] Internal Medicine Medical [facility] [address] [facility] [address] [address] Des Finley MD [address] [facility] [address] [place], [place] [id number] Social History Tobacco Use Types Packs/Day Years Used Date Smoking Tobacco: Never Assessed Comments Unknown Sex and Gender Information Value Date Recorded Sex Assigned at Not on file Legal Sex Female 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
--- OUTSIDE RECORDS SUMMARY | 2024-12-15 16:30 | XMS_ITS | Encounter Summary ---
Author Organization [facility] Address [address] [place] [address] Care Team Providers Care Twisting Department End Finder Name Role Phone Gen Hobbs MD Primary Care Provider [phone] Encounter Details Date Type Department Care Team (Late st Contact Info) Description 12/13/[address] 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 Cloudy(A) Clear INTERFACE SYSTEM SPECIFIC GRAVITY UA 1.020 1.001 - 1.035 INTERFACE SYSTEM PH UA 6.5 5.0 - 8.0 INTERFACE SYSTEM LEUKOCYTE ESTERASE UA Negative Negative INTERFACE SYSTEM NITRITE UA Negative Negative INTERFACE SYSTEM PROTEIN UA Negative Negative INTERFACE SYSTEM GLUCOSE UA Negative Negative INTERFACE SYSTEM KETONES UA Negative Negative INTERFACE SYSTEM UROBILINOGEN UA <1 <=1 mg/dL INTE RFACE SYSTEM BILIRUBIN UA Negative Negative INTERFA CE SYSTEM BLOOD UA Negative Negative INTERFACE SYSTEM WBC UA 1 0 - 5 /HPF INTERFACE SYSTEM RBC UA <1 0 - 4 /HPF INTERFACE SYSTEM BACTERIA UA 2+(A) None Seen /HPF INTERFACE SYSTEM EPITHELIAL CELLS, URINE 5-10 /HPF INTERFACE SYSTEM 12/13/2005 2:58 PM CDT us Des Finley MD URINE ORDERABLES Final Result Performing Organization Address City/[facility] Phone Number INTERFACE SYSTEM Refer to clinic/hospital department * TSH REFLEXIVE (12/13/2005 2:58 PM CDT) TSH 2.65 0.27 - 4.20 uU/mL INTERFACE SYSTEM 12/13/2005 2:58 PM CDT us Des Finley MD CHEMISTRY ORDERABLES Final Resu lt Performing Organization Address [facility] [place] Phone Number INTERFACE SYSTEM Refer to clinic/hospital department * (ABNORMAL) COMPREHENSIVE METABOLIC PANEL (12/13/2005 2:58 PM CDT) GLUCOSE 103(H) 65 - 99 mg/dL INTERFACE SYSTEM CREATININE 0.8 0.4 - 1.2 mg/dL INTERFACE SYSTEM CALCIUM 8.3(L) 8.6 - 10.2 mg/dL INTERFACE SYSTEM ALKALINE PHOSPHATASE 80 35 - 104 U/L INTERFACE SYSTEM AST 29 12 - 32 U/L INTERFACE SYSTEM ALT 27 0 - 31 U/L INTERFACE SYSTEM TOTAL PROTEIN 7.7 6.3 - 8.6 g/dL INTERFACE SYSTEM ALBUMIN 4.3 3.4 - 4.8 g/dL INTERFACE SYSTEM BILIRUBIN TOTAL 0.2 0.2 - 1.0 mg/dL INTERFACE SYSTEM BUN 11 6 - 20 mg/dL INTERFACE SYSTEM SODIUM 144 135 - 145 mmol/L INTERFACE SYSTEM POTASSIUM 4.0 3.5 - 4.9 mmol/L INTERFACE SYSTEM CHLORIDE 108 96 - 108 mmol/L INTERFACE SYSTEM CO2 24 22 - 30 mmol/L INTERFACE SYSTEM 12/13/2005 2:58 PM CDT us Des Finley MD CHEMISTRY ORDERABLES Final Resu lt INTERFACE SYSTEM Refer to clinic/hospital department documented in this encounter Visit Diagnoses Diagnosis Essential hypertension, benign- Primary documented in this encounter Care Teams Twisting Department End Finder Relationship Specialty Start Date End Date Gen Hobbs MD [address] [address] PCP - General Internal Medicine 02/25/23 documented as of this encounter
--- OUTSIDE RECORDS SUMMARY | 2024-12-15 16:30 | XMS_ITS | Encounter Summary ---
Author Organization [facility] Address [address] [place] [address] Care Team Providers Care Medical Staff Services Coordinator Name Role Phone Gen Hobbs MD Primary Care Provider [phone] Encounter Details Date Type Department Care Team (Late st Contact Info) Description 08/05/2007 Outpatient Historical [facility] Internal Medicine Medical [facility] [address] 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
--- OUTSIDE RECORDS SUMMARY | 2024-12-15 16:30 | XMS_ITS | Encounter Summary ---
Author Organization [employer] Address 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
--- OUTSIDE RECORDS SUMMARY | 2024-12-15 16:30 | XMS_ITS | Encounter Summary ---
Author Organization [facility] Address [address] [place] [address] Care Team Providers Care Energy Projects Lead Name Role Phone Gen Hobbs MD Primary Care Provider [phone] Encounter Details Date Type Department Care Team (Late st Contact Info) Description 12/25/2005 Orders Only [facility] Internal Medicine Medical [place] [facility] [address] [facility] [address] [address] Des Finley MD [address] [facility] [address] [place], [place] [id number] Social History Tobacco Use Types Packs/Day Years Used Date Smoking Tobacco: Never Assessed Comments Unknown Sex and Gender Information Value Date Recorded Sex Assigned at Not on file Legal Sex Female 4:38 AM BUSINESS OFFICE REPRESENTATIVE Gender Identity Not on file Sexual Orientation Not on file documented as of this encounter Progress Notes * [place] Finley MD - 01/27/2008 5:44 PM CDT TIME:09:50 pm PATIENT`S HOME PHONE: PATIENT`S WORK PHONE: PATIENT`S INSURANCE: [facility] WHO TOOK THE CALL: [place] Finley R PROBLEMS: BLOOD PRESSURE: Patient complains of problem with Blood Pressure, [facility] Faxed Some of her blood pressure readings. Systolic range is 132-172. Diastolic range is 93-107. She is presently taking HCTZ 12.5 mg daily. Clearly, blood pressure is still suboptimally controlled. SECTION 1: She needs to add atenolol to the hydrochlorothiazide. Picture she understands to take both medications at the same time. She should continue to monitor her blood pressure on a regular basis and periodically fax the results. DOCTOR`S RESPONSE: latisha 12/25/05 at 09:54 pm MEDICATIONS: Call in to Pharmacy ATENOLOL ORAL TABLET 25 MG, 1 Every Morning, 30 Dispensed, 3 Fills, status: NEW PRESCRIPTION, 12/25/2005. FINAL ACTION: powea12/26/05 at 11:12 am Left message on patient`s recorder or with a family member 12/26/2005 at 11:12 am. /ap SECTION 2: FINAL ACTION: powea12/31/05 at 05:19 pm Left message on patient`s recorder or with a family member 12/31/2005 at 05:19 pm. /ap SECTION 3: FINAL ACTION: powea01/02/06 at 11:50 am Spoke with patient 01/02/06 at 11:50 am. pp #[phone]..........patient has increased her exercise...............called new script into pharmacy.........../ap Electronically Signed by: Kiki Rico on Monday, January 02, 2006 documented in this encounter Plan of Treatment Not on file documented as of this encounter Visit Diagnoses Not on filedocumented in this encounter Care Teams Energy Projects Lead Relationship Specialty Start Date End Date Gen Hobbs MD [facility] [address] PCP - General Internal Medicine 02/25/23 documented as of this encounter
--- OUTSIDE RECORDS SUMMARY | 2024-12-15 16:30 | XMS_ITS | Encounter Summary ---
Author Organization [facility] Address [address] [place] [address] Care Team Providers Care Vending Machine Servicer Name Role Phone Gen Hobbs MD Primary Care Provider [phone] Encounter Details Date Type Department Care Team (Late st Contact Info) Description 10/22/2006 [facility] Internal [facility] Medical 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
--- OUTSIDE RECORDS SUMMARY | 2024-12-15 16:30 | XMS_ITS | Encounter Summary ---
Author Organization [employer] Address 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
--- OUTSIDE RECORDS SUMMARY | 2024-12-15 16:30 | XMS_ITS | Encounter Summary ---
Author Organization [facility] Address [address] [place] [address] Care Team Providers Care Sock Lining Stitcher Name Role Phone Gen Hobbs MD Primary Care Provider [phone] Encounter Details Date Type Department Care Team (Latest Contact Info) Description 09/25/2002 Outpatient Historical [facility] Des Finley MD [address] [facility] [address] [place] [address] RESPIRATORY ABNORM NEC (Primary Dx) Social History Tobacco Use Types Packs/Day Years Used Date Smoking Tobacco: Never Assessed Comments Unknown Sex and Gender Information Value Date Recorded Sex Assigned at Not on file Legal 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
--- OUTSIDE RECORDS SUMMARY | 2024-12-15 16:30 | XMS_ITS | Encounter Summary ---
Author Organization [facility] Address 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
--- OUTSIDE RECORDS SUMMARY | 2024-12-15 16:30 | XMS_ITS | Clinical Summary ---
Author Organization [facility] Address [address] [place] [address] Phone Care Team Providers Care Head Inspector And Center Marker Name Role Phone Gen Hobbs MD Primary Care Provider [phone] Allergies Active Allergy Reactions Criticality Noted Date Comments No Known Allergies 12/13/2005 Medications ciprofloxacin (CILOXAN) 0.3 % OP solutionIndicat ions:Conjunctiv itis Administer 1 Drop in both eyes every 4 hours. 1 Bottle 0 2 Active amLODIPine (NORVASC) 10 mg Oral tabletIndicatio ns:Essential hypertension, benign Take 1 Tab by mouth daily. 90 Tab 3 2 Active lovastatin (MEVACOR) 40 mg Oral tabletIndicatio ns:Hyperlipidem ia Take 1 Tab by mouth daily with supper. 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 90 Tab 3 2 Active budesonide-form oteroL (Symbicort) 160-4.5 mcg/actuation HFA Aerosol Inhaler Take 2 Puffs by inhalation 2 times daily. 3 Active albuterol sulfate HFA 90 mcg/actuation aerosol inhaler Take 2 Puffs by inhalation every 4 hours as needed. 3 Active atorvastatin (LIPITOR) 20 mg tablet Take 20 mg by mouth daily. 3 Active amLODIPine (NORVASC) 10 mg tablet Take 10 mg by mouth daily. Active Active Problems Problem Noted Date Diagnosed Date Constipation 12/23/2007 Cervicalgia 08/01/2007 Depressive disorder, not elsewhere classified Essential hypertension, benign 12/13/2005 Resolved Problems Problem Noted Date Diagnosed Date Resolved Date Family history of ischemic heart disease 12/23/2007 01/01/2011 Family history of diabetes mellitus 12/23/2007 01/01/2011 Chest pain, unspecified 12/13/2005 09/0 12/2007 Routine general medical exam ination at a health care facility 12/13/2005 12/23/2007 Contact dermatitis and other eczema due to plants (except food) 08/22/2005 12/23/2007 Encounters Date Type Department Care Team Description 12/01/2024 External Device Data STL ABSTRACTION Provider, Abstract 11/17/2024 External Device Data STL ABSTRACTION Provider, Abstract 11/17/2024 External Device Data STL ABSTRACTION Provider, Abstract 10/28/2024 External Device Data STL ABSTRACTION Provider, Abstract 10/27/2024 External Device Data STL ABSTRACTION Provider, Abstract 10/13/2024 External Device Data STL ABSTRACTION Provider, Abstract 09/30/2024 External Device Data STL ABSTRACTION Provider, Abstract from Last 3 Months Family History Medical History Relation Name Comments Coronary Artery Disease Brother 4 Mi 3 8 Heart Disease Brother 5 enlarged heart Hypertension Brother 6 Cancer Father lung Coronary Artery Disease Father Heart Disease Father needed defibri llator, age 60 Breast Cancer Maternal Aunt Diabetes Mother Stroke Mother Hypertension Sister 3 Hypertension Sister 4 Crohn's Disease Sister 5 Ovarian Cancer Neg Hx Relation Name Status Comments Brother 1 Brother 2 Alive Brother 3 Alive Brother 4 Brother 5 Brother 6 Father Maternal Aunt Mother Sister 1 Alive Sister 2 Alive Sister 3 Sister 4 Sister 5 Social History Tobacco Use Types Packs/Day Years Used Date Smoking Tobacco: Never Smokeless Tobacco: Never Tobacco Cessation:Counseling Given: Not Answered Alcohol Use Standard Drinks/Week Comments Yes 0 (1 standard drink = 0.6 oz pur e alcohol) social Feeling Safe Answer Date Recorded Are you in a relationship wi th someone who hurts you emotionally and/or physically? 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 Not on file Not on file Not on file Last Filed Vital Signs Vital Sign Reading Time Taken Comments Blood Pressure 133/85 02/25/2023 3:10 PM TOOL DESIGN ENGINEER Pulse 70 02/25/2023 3:10 PM TOOL DESIGN ENGINEER Temperature 37.4 C (99.3 F) 02/25/2023 3:10 PM TOOL DESIGN ENGINEER Respiratory Rate 18 02/25/2023 3:10 PM TOOL DESIGN ENGINEER Oxygen Saturation 99% 02/25/2023 3:10 PM TOOL DESIGN ENGINEER Inhaled Oxygen Concentration - - Weight 81.2 kg (179 lb) 05/30/2011 3:49 PM TOOL DESIGN ENGINEER Height 165.1 cm (5' 5) 05/30/2011 3:49 PM TOOL DESIGN ENGINEER Body Mass Index 29.79 05/30/2011 3:49 PM TOOL DESIGN ENGINEER Plan of Treatment Health Maintenance Due Date Last Done Comments Pre-Diabetes and Diabetes Screening 1966 HEPATITIS B VACCINES (1 of 3 - 19+ 3-dose series) 1985 HPV/Cotest (21-29) 06/21/1987 HPV/Cotest (30-65) 1996 FIT-DNA Q 3 years 06/21/2011 FIT/FOBT Q 1 year 06/21/2011 Flex Sig/CT Colonography Q 5 years 06/21/2011 BREAST CANCER SCREENING 01/27/2012 01/26/2011, 01/13 ZOSTER VACCINE (1 of 2) 2016 INFLUENZA VACCINE (#1) 2024 DTAP/TDAP/TD VACCINES (3 - T d or Tdap) 10/05/2026 10/05/2016, 02/25/2015 CERVICAL CANCER SCREENING 12/18/2026 PAP SMEAR 12/18/2026 12/19/2023, 08/04/2022, 07/14/2010, Additional history exists COLORECTAL SCREENING 01/11/2027 01/11/2017 Colorectal Cancer Screening 01/11/2027 Procedures Procedure Name Priority Date/Time Associated Diagnosis Comments MAMMO SCREEN BILAT W OR WO CAD Routine 01/26/2011 4:34 PM CDT Other screening mammogram from Last 3 Months or Most Recently Relevant to Health Maintenance Results * MAMMO DIGITAL SCREEN BILAT (01/26/2011 4:34 PM CDT) Anatomical Region Laterality Modality Breast Bilateral Mammography 01/26/2011 4:26 PM CDT Impressions 01/30/2011 10:04 AM CDT IMPRESSION: No mammographic evidence of malignancy. OVERALL ASSESSMENT: BI-RADS category 1 - Negative Narrative 01/30/2011 10:04 AM CDT BILATERAL SCREENING DIGITAL MAMMOGRAMS WITH COMPUTER ASSISTED [id number]/14/2011. Comparison mammogram dated 01/13/2010. FINDINGS: The parenchyma is moderately dense bilaterally. There is no mass, malignant calcification, lymphadenopathy or other sign of malignancy. The images were reviewed using the CAD system. Procedure Note Haven Betancourt MD - 01/30/2011 BILATERAL SCREENING DIGITAL MAMMOGRAMS WITH COMPUTER ASSISTED [id number]/14/2011. Comparison mammogram dated 01/13/2010. FINDINGS: The parenchyma is moderately dense bilaterally. There is no mass, malignant calcification, lymphadenopathy or other sign of malignancy. The images were reviewed using the CAD system. IMPRESSION IMPRESSION: No mammographic evidence of malignancy. OVERALL ASSESSMENT: BI-RADS category 1 - Negative us Lisa Giron MD MAMMO ORDERABLES Final Result from Last 3 Months or Most Recently Relevant to Health Maintenance Insurance Care Teams Head Inspector And Center Marker Relationship Specialty Start Date End Date Gen Hobbs MD [address] [address] PCP - General Internal Medicine 02/25/23
--- OUTSIDE RECORDS SUMMARY | 2024-12-15 16:30 | XMS_ITS | Encounter Summary ---
Author Organization [facility] Address [address] [place] [address] Care Team Providers Care Vice President Quality Assurance Name Role Phone Gen Hobbs MD Primary Care Provider [phone] Encounter Details Date Type Department Care Team (Latest Contact Info) Description 01/03/2008 Outpatient Historical [facility] Lisa Giron MD [address] [place] [address] Family History of Ischemic Heart Disease Social History Tobacco Use Types Packs/Day Years Used Date Smoking Tobacco: Never Alcohol Use Standard Drinks/Week Comments No 0 (1 standard drink = 0.6 oz pur e alcohol) Comments No Sex and Gender Information Value Date Recorded Sex Assigned at Not on file Legal Sex Female 4:38 AM DATA WAREHOUSING ARCHITECT Gender Identity Not on file Sexual Orientation Not on file 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 Not on file Not on file Not on file documented as of this encounter Plan of Treatment Not on file documented as of this encounter Visit Diagnoses Diagnosis Family history of ischemic heart disease documented in this encounter Care Teams Vice President Quality Assurance Relationship Specialty Start Date End Date Gen Hobbs MD [address] [address] PCP - General Internal Medicine 02/25/23 documented as of this encounter
--- OUTSIDE RECORDS SUMMARY | 2024-12-15 16:30 | XMS_ITS | Encounter Summary ---
Author Organization [facility] Address [address] [place] [address] Care Team Providers Care Bus Mechanic Name Role Phone Gen Hobbs MD Primary Care Provider [phone] Encounter Details Date Type Department Care Team (Late st Contact Info) Description 09/24/2006 Orders Only [facility] Internal Medicine Medical [place] A [facility] [address] [facility] [address] [address] [place]ley MD [address] [place] [address] Social History Tobacco Use Types Packs/Day Years Used Date Smoking Tobacco: Never Assessed Comments Unknown Sex and Gender Information Value Date Recorded Sex Assigned at Not on file Legal Sex Female 4:38 AM SPRING TESTER Gender Identity Not on file Sexual Orientation Not on file documented as of this encounter Progress Notes * Dennis Finley MD - 09/03/2007 3:40 PM CDT TIME:09:30 am PATIENT`S HOME PHONE: PATIENT`S WORK PHONE: PATIENT`S INSURANCE: [facility] WHO TOOK THE CALL: Dennis Finley R SECTION 1: DOCTOR`S RESPONSE: latisha 09/24/06 at 09:32 am MEDICATIONS: Call in to Pharmacy NORVASC ORAL TABLET 5 MG, 1 Every Morning, 30 Dispensed, 3 Fills, status: NEW PRESCRIPTION, 09/24/2006. NORVASC ORAL TABLET 2.5 MG, 1 Every Morning, 30 Dispensed, status: DISCONTINUED, 09/24/2006. DOCTOR`S OTHER RESPONSE: I have reviewed the blood pressure readings and they appear to be somewhatimproved. Have her increase her Norvasc to 5 mg daily and continue to monitor her blood pressure. FINAL ACTION: [email or web address] 09/24/06 at 01:13 pm Left message on patient`s recorder or with a family member 09/24/2006 at 01:13 pm. /ap SECTION 2: FINAL ACTION: [email or web address] 09/25/06 at 10:42 am Spoke with patient 09/25/06 at 10:42 am. /ap Electronically Signed by: Kiki Rico on Monday, September 25, 2006 documented in this encounter Plan of Treatment Not on file documented as of this encounter Visit Diagnoses Not on filedocumented in this encounter Care Teams Bus Mechanic Relationship Specialty Start Date End Date Gen Hobbs MD [address] [address] PCP - General Internal Medicine 02/25/23 documented as of this encounter
--- OUTSIDE RECORDS SUMMARY | 2024-12-15 16:30 | XMS_ITS | Encounter Summary ---
Author Organization [employer] Address [address] [place] [address] Care Team Providers Care Inspector Bullet Slugs Name Role Phone Gen Hobbs MD Primary Care Provider [phone] Encounter Details Date Type Department Care Team (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
--- OUTSIDE RECORDS SUMMARY | 2024-12-15 16:30 | XMS_ITS | Encounter Summary ---
Author Organization [facility] Address [address] [place] [address] Care Team Providers Care Molder Inflated Ball Name Role Phone Gen Hobbs MD Primary Care Provider [phone] Encounter Details Date Type Department Care Team (Late st Contact Info) Description 08/01/2007 Outpatient Historical [facility] Internal Medicine Medical [facility] [address] [facility] [address] [address] Des Finley MD [address] [facility] [address] [place], [place] [id number] Social History Tobacco Use Types Packs/Day Years Used Date Smoking Tobacco: Never Assessed Comments Unknown Sex and Gender Information Value Date Recorded Sex Assigned at Not on file Legal Sex Female 4:38 AM PREP PERSON Gender Identity Not on file Sexual Orientation Not on file documented as of this encounter Plan of Treatment Not on file documented as of this encounter Visit Diagnoses Not on filedocumented in this encounter Care Teams Molder Inflated Ball Relationship Specialty Start Date End Date Gen Hobbs MD [address] [facility] [address] [place] [address] PCP - General Internal Medicine 02/25/23 documented as of this encounter
--- OUTSIDE RECORDS SUMMARY | 2024-12-15 16:30 | XMS_ITS | Encounter Summary ---
Author Organization [facility] Address [address] [place] [address] Care Team Providers Care Employee Service Officer Name Role Phone Gen Hobbs MD Primary Care Provider [phone] Encounter Details Date Type Department Care Team (Late st Contact Info) Description 08/14/2006 Orders Only [facility] Internal Medicine Medical [place] A [facility] [address] [facility] [address] [address] Des Finley MD [address] [facility] [address] [place] [address] Social History Tobacco Use Types Packs/Day Years Used Date Smoking Tobacco: Never Assessed Comments Unknown Sex and Gender Information Value Date Recorded Sex Assigned at Not on file Legal Sex Female 4:38 AM PLATE CLEANER Gender Identity Not on file Sexual Orientation Not on file documented as of this encounter Progress Notes * Dennis Finley MD - 09/04/2007 8:22 AM CDT TIME:11:35 am PATIENT`S HOME PHONE: PATIENT`S WORK PHONE: PATIENT`S INSURANCE: [facility] WHO TOOK THE CALL: Kiki Rico M GENERAL INFORMATION PATIENT STATUS: Established Patient. ALTERNATIVE PHONE NUMBER: [phone] WHO CALLED: Patient called. CURRENT ALLERGY LIST: [facility] NUMBER: [phone] PROBLEMS: PINK EYE: Patient complains of pink eye. both eyes were red yesterday.......this morning both eyes were completely crusted over this morning.........left eye hurts today.........no itching and deniesany burning........... Patient also has poison jessica at this time on her left and right arms from working in the yard.........Patient is using Benadryl and it seems to be working for her.........no bumps or rashes on her face at this time SECTION 1: DOCTOR`S RESPONSE: latisha 08/14/06 at 12:34 pm MEDICATIONS: Call in to Pharmacy MAXITROL OPHTHALMIC SUSPENSION [phone] MILLILITERS, 1 drop OPHTHALMIC q 4 hours while awake, 5 Dispensed, status: NEW PRESCRIPTION, 08/14/2006. SECTION 2: FINAL ACTION: susan 08/14/06 at 02:35 pm Spoke with patient 08/14/06 at 02:35 pm. Called pharmacy at 08/14/06 at 02:35 pm. Electronically Signed by: Laura Dove on Monday, August 14, 2006 documented in this encounter Plan of Treatment Not on file documented as of this encounter Visit Diagnoses Not on filedocumented in this encounter Care Teams Employee Service Officer Relationship Specialty Start Date End Date Gen Hobbs MD [address] [address] PCP - General Internal Medicine 02/25/23 documented as of this encounter
--- OUTSIDE RECORDS SUMMARY | 2024-12-15 16:30 | XMS_ITS | Encounter Summary ---
Author Organization [employer] Address [address] [place] [address] Care Team Providers Care Reading Coach Name Role Phone Gen Hobbs MD Primary Care Provider [phone] Encounter Details Date Type Department Care Team (Late st Contact Info) Description 09/25/2002 Outpatient Historical [facility] [address] [place] [address] Dixon Duran MD NO ADDRESS ON FILE Social History Tobacco Use Types Packs/Day Years Used Date Smoking Tobacco: Never Assessed Comments Unknown Sex and Gender Information Value Date Recorded Sex Assigned at Not on file Legal Sex Female 4:38 AM DIRECTOR SUPPLY Gender Identity Not on file Sexual Orientation Not on file documented as of this encounter Plan of Treatment Not on file documented as of this encounter Visit Diagnoses Not on filedocumented in this encounter Care Teams Reading Coach Relationship Specialty Start Date End Date Gen Hobbs MD [address] [facility] [address] [place] [address] PCP - General Internal Medicine 02/25/23 documented as of this encounter
--- OUTSIDE RECORDS SUMMARY | 2024-12-15 16:30 | XMS_ITS | Encounter Summary ---
Author Organization [facility] Address [address] [place] [address] Care Team Providers Care Criminal Justice Instructor Name Role Phone Gen Hobbs MD Primary Care Provider [phone] Encounter Details Date Type Department Care Team (Late st Contact Info) Description 08/05/2007 Outpatient Historical [facility] Internal Medicine Medical [facility] [address] [facility] [address] Des Finley MD [address] [facility] [address] [place], [place] [id number] Social History Tobacco Use Types Packs/Day Years Used Date Smoking Tobacco: Never Assessed Comments Unknown Sex and Gender Information Value Date Recorded Sex Assigned at Not on file Legal 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
--- OUTSIDE RECORDS SUMMARY | 2024-12-15 16:30 | XMS_ITS | Encounter Summary ---
Author Organization [facility] Address [address] [place] [address] Care Team Providers Care Care Taker Name Role Phone Gen Hobbs MD Primary Care Provider [phone] Encounter Details Date Type Department Care Team (Late st Contact Info) Description 12/13/2005 Orders Only [facility] Internal Medicine Medical [place] [facility] [address] [facility] [address] [address] Des Finley MD [address] [facility] [address] [place] [id number] Social History Tobacco Use Types Packs/Day Years Used Date Smoking Tobacco: Never Assessed Comments Unknown Sex and Gender Information Value Date Recorded Sex Assigned at Not on file Legal Sex Female 4:38 AM DELIVERY NURSE Gender Identity Not on file Sexual Orientation Not on file documented as of this encounter Progress Notes * Dennis Finley MD - 01/22/2008 11:47 PM CDT WEIGHT: 189lbs BLOOD PRESSURE: 164/108 Left Arm Sitting TEMPERATURE: 98.1??f Oral PULSE: 84 Right Radial, Regular RESPIRATIONS: 16 HEIGHT: 5ft4 3/4in BMI: 31.69 NURSE NAME: Ale Leach I ALLERGIES: No known drug allergies. MEDICATIONS: Patient is taking no medications at present. CHIEF COMPLAINT Patient here for follow up hypertension. HISTORY: time comes to the office for follow-up of hypertension. For 3 months she has noted her blood pressure to be 170/100. She denies any headaches, blurred vision, shortness of breath, PND, orthopnea, pedal edema or increased dyspnea on exertion. hip she has, however had substernal chest discomfort when climbing inclines, even those which are particularly steep. The discomfort is described asa heaviness associated with some shortness of breath. If she stops and rests for several minutes, it usually resolves. It is usually reproducible. She has not had any focal neurological signs or symptoms. She denies any changes in her urine habits. She has not been taking any medications with sympat homimetic properties. She denies the use of stimulants or other illicit drugs. When she was seen by Dr. Neves this past August, her blood pressure was 120/72, however the patient tells me for the past 3-6 months when she has measured her blood pressure at local grocery stores, ithas routinely been 150-170/90-100. She has a particularly strong family history of hypertension with it involving both parents and 3 of her siblings. CURRENT PROBLEM LIST: 692.6 CONTACT DERMATITIS AND OTHER ECZEMA CURRENT MEDICATION LIST: CURRENT ALLERGY LIST: NKDA PHYSICAL EXAMINATION: CONSTITUTIONAL: GENERAL APPEARANCE: Healthy appearing patient in no distress. EYES: CONJUNCTIVAE/LIDS: Conjunctivae and lids appear normal. PUPILS: Pupils equal and normally reactive to light and accommodation. FUNDUSCOPIC EXAM: Ophthalmoscopic examination shows the fundi to be normal. The optic disc are flatand of normal size. There are no hemorrhages or exudates. EARS, NOSE, MOUTH AND THROAT: ORAL: Inspection of gums, lips, palate, and teeth normal. No scars, lesions, or masses. Oral mucosaunremarkable with non-inflamed posterior pharynx. NECK/THYROID: Trachea midline. No thyroid enlargement, tenderness, or mass. No supraclavicular or cervical adenopathy. RESPIRATORY: Clear to auscultation and percussion. Normal respiratory effort. CARDIOVASCULAR: CARDIAC: Regular rhythm. No murmurs, rubs, or gallops. GASTROINTESTINAL: ABDOMEN: Soft, non-tender, without masses. Bowel sounds active. LIVER/SPLEEN/KIDNEY: No hepatosplenomegaly, tenderness or nodularity. Kidneys not palpable.No bruits appreciated HERNIA: No hernias are present. SKIN: RASH/LESION #1 LOCATION: Scalp. Right lateral neck. Left upper extremity, right upper extremity. CHARACTERISTICS: The lesion is erythematous. The rash is vesicular. The lesion border is asymmetrical. The lesions are scattered. NEUROLOGIC: CRANIAL NERVES: DEEP TENDON REFLEXES: ASSESSMENT/PLAN: 401.1-HYPERTENSION ESSENTIAL BENIGN MEDICATIONS: HYDROCHLOROTHIAZIDE ORAL CAPSULE CONVENTIONAL 12.5 MG, 1 Every Morning, 30 Dispensed, 3 Fills, status: NEW PRESCRIPTION, 12/13/2005. LAB ORDERS: Order number: [id number] Test Ordered: COMPREHENSIVE METABOLIC PANEL 1112 Order number: [id number] Test Ordered: TSH (REFLEX FREE T4/FREE T3) 1727 Order number: [id number] Test Ordered: URINALYSIS 2222 786.50-CHEST PAIN UNSPECIFIED LAB ORDERS: Order number: [id number] Test Ordered: STRESS ECHO V70.0-ROUTINE GENERAL MEDICAL EXAMINATION ASSESSMENT: The patient is doing well and no distinct problems were identified on exam. HEALTH MAINTENANCE: LAST PAP DATE: 2002. LAST TD: decline TIME PHYSICIAN WITH PATIENT: TOTAL: 20 minutes. RETURN VISIT : Patient instructed to return in 3 months. Electronically Signed by: Dennis Finley MD on Sunday, December 18, 2005 documented in this encounter Plan of Treatment Not on file documented as of this encounter Visit Diagnoses Not on filedocumented in this encounter Care Teams Care Taker Relationship Specialty Start Date End Date Gen Hobbs MD [address] [address] PCP - General Internal Medicine 02/25/23 documented as of this encounter
== END 2024-12-15 16:28 | disposition home or self-care (01) ==
LOC: ANHFOHIMG 16:28
DX: Z12.31 Encounter for screening mammogram for malignant neoplasm of breast (principal)
CPT/HCPCS: 77063; 77067